=== PATIENT | male | born 1975 | race Caucasian/White ===

== ENCOUNTER 2018-05-06 13:27 | Emergency (ER) | payer OTHER, SELFPAY ==
[2018-05-06 13:40] VITALS: BP 147/98; PULSE 67; RESP 11; TEMP 37.2; O2SAT 95
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
[2018-05-06] MEDS: Lidocaine 5% Patch 2 PATCH TP (15:17)
[2018-05-06 15:25] VITALS: BP 124/83; PULSE 70; RESP 16; TEMP 37; O2SAT 95
== END 2018-05-06 15:25 | disposition home or self-care (01) ==
PROVIDERS: Emergency Provider Physician Assistant; PCP Specialist/Technologist Athletic Trainer
DX: R07.81 Pleurodynia (principal); M25.511 Pain in right shoulder; V59.40XA Driver of pick-up truck or van injured in collision with unspecified motor vehicles in traffic accident, initial encounter; Y99.0 Civilian activity done for income or pay
CPT/HCPCS: 93005; 99284; 71046; 71100; 73030; 93010

== ENCOUNTER 2019-01-07 01:32 | Outpatient (CLI) | payer MEDICAID, SELFPAY ==
--- NOTE | 2019-01-07 09:54 | DI.US_ITS ---
SYMPTOM/DIAGNOSIS: ABD PAIN, R10.9 ABDOMEN ULTRASOUND: Hepatic parenchyma is echogenic and there is decrease through transmission. Findings are consistent with hepatic steatosis. Significant portions of the liver are not visualized due to patient's size and decrease through transmission. There is cholelithiasis with multiple gallstones. No gallbladder wall thickening or pericholecystic fluid collection is seen. Negative sonographic Red's sign. No common duct dilatation. Pancreas appears intact as visualized. Spleen is unremarkable in appearance as are the kidneys. Note is made of a ventral hernia in the supraumbilical region measuring about 5- 6 cm. in diameter. This appears to contain bowel. CONCLUSION: 1. Cholelithiasis. 2. Hepatic steatosis and mild hepatomegaly. 3. Probable ventral hernia containing bowel, correlation with CT is recommended.
== END 2019-01-07 01:52 ==
PROVIDERS: PCP Nurse Practitioner Family; Visit Provider Nurse Practitioner Family
DX: R10.9 Unspecified abdominal pain (principal); K80.20 Calculus of gallbladder without cholecystitis without obstruction; K76.0 Fatty (change of) liver, not elsewhere classified; R16.0 Hepatomegaly, not elsewhere classified; K43.9 Ventral hernia without obstruction or gangrene
CPT/HCPCS: 76700

== ENCOUNTER 2019-03-02 03:21 | Emergency (ER) | payer MEDICAID, SELFPAY ==
[2019-03-02 03:27] VITALS: BP 125/114; PULSE 72; RESP 22; TEMP 36.1; O2SAT 100
--- NOTE | 2019-03-02 03:38 | W.ED.GENAD ---
Discharge Plan Disposition Patient Disposition: HOME Condition: Stable Discharge Details Chief Complaint: Abd Prob Clinical Impression: Abdominal pain Primary Care Provider: Nasrin Royal ED Provider: Triston Sanders Home Meds and New Rx's Prescriptions: No Action multivitamin [Daily Multiple] 1 EACH tablet 1 ea PO DAILY RF: 0 omeprazole 40 mg PO DAILY RF: 0 ibuprofen 600 MG tablet 600 mg PO Q6H PRN (Reason: Pain) Qty: 20 RF: 0 Discharge Instructions Instructions: Abdominal Pain (ED) Additional Instructions: follow up with your surgeon in [place] in 1-2 weeks if possible if you have severe worsening of pain, persistent vomit or feel more ill return to the emergency department for reevaluation Medical Decision Making 43 yo male who has a hx of gerd, gallstones dx'd on u/s in January of this year who comes in with severe abdominal pain that started around 3 horus or so ago. HE states he has been having intermittent abdominal pain for over a month but acutely worsened tonight. Denies chest pain, sob, fevers, vomit but has had nausea. He is tender throughout the upper abdomen on exam and is in severe pain. Will tx his pain and obtain lab work and ct imaging to eval for entities such as pneumoperitoneum, cholecystitis, sbo. pt's labs show no acute findings, lipase still pending due to machine malfunction. Pt feeling significantly better now and much more comfortable, mild upper abdominal pain. awaiting ct and lipase ct shows nonspecific attenuation in gallbladder stones and/or sludge otherwise normal gallbladder, and umbilical hernia contains fat and small fluid/inflammation. He has absolutely no tendneress at this time on exam anywhere, no field's sign so doubt incarcerated hernia or cholecystitis. Given his pain is gone do not feel further imaging indicated. He is f/u with surgery in [place], return precautions given Differential Diagnosis cholecystitis, pneumoperitoneum, kidney stone Imaging Data Radiologic Study: Attestation: I personally reviewed and interpreted this imaging study as follows: Imaging: CT Scan Radiologist's impression: IMPRESSION: 1. Heterogeneous increased attenuation in the gallbladder in the region of the neck may reflect stones and/or sludge. Gallbladder is normally distended and not obviously thick walled. Sonography however recommended if right upper quadrant symptoms are present. 2. Umbilical region hernia contains fat and small fluid/inflammation. Clinical correlation recommended to assess for incarceration of the herniated fat. Lab Data Lab results reviewed: Yes I reviewed the patient's lab results. HPI General Mode of arrival: ambulatory. Date/Time Provider Initiated Documentation: 03/02/19 03:23. Limitations to Documentation: no limitations. Information obtained by: patient. History of Present Illness 43 year old M presents to the emergency department with the chief complaint of upper abdominal pain, described as severe, Quality is described as sharp, and is localized to the abdomen. Patient reports no radiation. Patient started experiencing this hour(s) (3) and it has been constant. No relieving factors improve symptom(s), No exacerbating factors reported . Patient notes other (nausea). Patient did receive the following treatments prior to arrival, none Related Data Home Medications Medication Instructions Recorded Confirmed Omeprazole 40 mg PO DAILY 07/10/16 03/02/19 multivitamin [Daily Multiple] 1 ea PO DAILY 07/10/16 03/02/19 ibuprofen 600 mg PO Q6H PRN #20 tablet 05/06/18 03/02/19 Previous Rx's Medication Instructions Recorded ibuprofen 600 mg PO Q6H PRN #20 tablet 05/06/18 Allergies Allergy/AdvReac Type Severity Reaction Status Date / Time No Known Allergies Allergy Unverified 03/02/19 03:31 General Stated Complaint: Abd Prob RIKA: 3 Review of Systems Review of Systems All systems reviewed & are unremarkable except as noted in HPI and below Constitutional Denies chills, Denies fever(s) and Denies weakness Cardiovascular Denies chest pain and Denies dyspnea Respiratory Denies cough and Denies dyspnea Gastrointestinal Denies nausea and Denies vomiting Neurologic Denies weakness PFSH Surgical History EGD - MAC (08/15/16) Social History Smoking/Tobacco Use Status: Former Tobacco Use Drug use: Never Substance use type: does not use Do you feel safe in your relationship?: Yes Exam Const General: other (in pain) Orientation: alert HENMT Head: normal to inspection Ears: external ears normal General nose exam: external nose normal Mouth: moist mucous membranes Eyes General: appearance normal, both eyes and all related structures Neck Neck: normal visual inspection Resp Effort & Inspection: normal respiratory effort and able to speak in complete sentences Cardio Rate: regular rate GI Palpation: tender Skin General skin exam: no rashes or lesions noted Neuro General: alert and oriented x3 Extrem General: normal to inspection Psych Mental Status: mental status grossly normal Course Vital Signs Temperature 36.1 C L 03/02/19 03:27 Pulse 72 03/02/19 03:27 Respiratory Rate 22 03/02/19 03:27 Blood Pressure 125/114 H 03/02/19 03:27 Pulse Oximetry 100 03/02/19 03:27 Temperature 36.1 C L 03/02/19 03:27 Temperature Source Skin 03/02/19 03:27 Pulse 72 03/02/19 03:27 Respiratory Rate 22 03/02/19 03:27 Respiratory Effort 03/02/19 03:31 Blood Pressure 125/114 H 03/02/19 03:27 Blood Pressure Position Sitting 03/02/19 03:27 Pulse Oximetry 100 03/02/19 03:27 Oxygen Delivery Method Room Air 03/02/19 03:27 Oxygen Flow Rate 0 03/02/19 03:27 Pain Level 8 03/02/19 03:27
--- NOTE | 2019-03-02 03:42 | ED.GENADUL_ITS ---
Discharge Plan Disposition Patient Disposition: HOME Condition: Stable Discharge Details Chief Complaint: Abd Prob Clinical Impression: Abdominal pain Primary Care Provider: Nasrin Royal ED Provider: Triston Sanders Home Meds and New Rx's Prescriptions: No Action multivitamin [Daily Multiple] 1 EACH tablet 1 ea PO DAILY RF: 0 omeprazole 40 mg PO DAILY RF: 0 ibuprofen 600 MG tablet 600 mg PO Q6H PRN (Reason: Pain) Qty: 20 RF: 0 Discharge Instructions Instructions: Abdominal Pain (ED) Additional Instructions: follow up with your surgeon in [place] in 1-2 weeks if possible if you have severe worsening of pain, persistent vomit or feel more ill return to the emergency department for reevaluation Medical Decision Making 43 yo male who has a hx of gerd, gallstones dx'd on u/s in January of this year who comes in with severe abdominal pain that started around 3 horus or so ago. HE states he has been having intermittent abdominal pain for over a month but acutely worsened tonight. Denies chest pain, sob, fevers, vomit but has had nausea. He is tender throughout the upper abdomen on exam and is in severe pain. Will tx his pain and obtain lab work and ct imaging to eval for entities such as pneumoperitoneum, cholecystitis, sbo. pt's labs show no acute findings, lipase still pending due to machine malfunction. Pt feeling significantly better now and much more comfortable, mild upper abdominal pain. awaiting ct and lipase ct shows nonspecific attenuation in gallbladder stones and/or sludge otherwise normal gallbladder, and umbilical hernia contains fat and small fluid/inflammation. He has absolutely no tendneress at this time on exam anywhere, no field's sign so doubt incarcerated hernia or cholecystitis. Given his pain is gone do not feel further imaging indicated. He is f/u with surgery in [place], return precautions given Differential Diagnosis cholecystitis, pneumoperitoneum, kidney stone Imaging Data Radiologic Study: Attestation: I personally reviewed and interpreted this imaging study as follows: Imaging: CT Scan Radiologist's impression: IMPRESSION: 1. Heterogeneous increased attenuation in the gallbladder in the region of the neck may reflect stones and/or sludge. Gallbladder is normally distended and not obviously thick walled. Sonography however recommended if right upper quadrant symptoms are present. 2. Umbilical region hernia contains fat and small fluid/inflammation. Clinical correlation recommended to assess for incarceration of the herniated fat. Lab Data Lab results reviewed: Yes I reviewed the patient's lab results. HPI General Mode of arrival: ambulatory . Date/Time Provider Initiated Documentation: 03/02/19 03:23 . Limitations to Documentation: no limitations . Information obtained by: patient . History of Present Illness 43 year old M presents to the emergency department with the chief complaint of upper abdominal pain, described as severe, Quality is described as sharp, and is localized to the abdomen. Patient reports no radiation. Patient started experiencing this hour(s) (3) and it has been constant. No relieving factors improve symptom(s), No exacerbating factors reported . Patient notes other (nausea). Patient did receive the following treatments prior to arrival, none Related Data Home Medications Medication Instructions Recorded Confirmed Omeprazole 40 mg PO DAILY 07/10/16 03/02/19 multivitamin [Daily Multiple] 1 ea PO DAILY 07/10/16 03/02/19 ibuprofen 600 mg PO Q6H PRN #20 tablet 05/06/18 03/02/19 Previous Rx's Medication Instructions Recorded ibuprofen 600 mg PO Q6H PRN #20 tablet 05/06/18 Allergies Allergy/AdvReac Type Severity Reaction Status Date / Time No Known Allergies Allergy Unverified 03/02/19 03:31 General Stated Complaint: Abd Prob RIKA: 3 Review of Systems Review of Systems All systems reviewed & are unremarkable except as noted in HPI and below Constitutional Denies chills, Denies fever(s) and Denies weakness Cardiovascular Denies chest pain and Denies dyspnea Respiratory Denies cough and Denies dyspnea Gastrointestinal Denies nausea and Denies vomiting Neurologic Denies weakness PFSH Surgical History EGD - MAC (08/15/16) Social History Smoking/Tobacco Use Status: Former Tobacco Use Drug use: Never Substance use type: does not use Do you feel safe in your relationship?: Yes Exam Const General: other (in pain) Orientation: alert HENMT Head: normal to inspection Ears: external ears normal General nose exam: external nose normal Mouth: moist mucous membranes Eyes General: appearance normal, both eyes and all related structures Neck Neck: normal visual inspection Resp Effort & Inspection: normal respiratory effort and able to speak in complete sentences Cardio Rate: regular rate GI Palpation: tender Skin General skin exam: no rashes or lesions noted Neuro General: alert and oriented x3 Extrem General: normal to inspection Psych Mental Status: mental status grossly normal Course Vital Signs Temperature 36.1 C L 03/02/19 03:27 Pulse 72 03/02/19 03:27 Respiratory Rate 22 03/02/19 03:27 Blood Pressure 125/114 H 03/02/19 03:27 Pulse Oximetry 100 03/02/19 03:27 Temperature 36.1 C L 03/02/19 03:27 Temperature Source Skin 03/02/19 03:27 Pulse 72 03/02/19 03:27 Respiratory Rate 22 03/02/19 03:27 Respiratory Effort 03/02/19 03:31 Blood Pressure 125/114 H 03/02/19 03:27 Blood Pressure Position Sitting 03/02/19 03:27 Pulse Oximetry 100 03/02/19 03:27 Oxygen Delivery Method Room Air 03/02/19 03:27 Oxygen Flow Rate 0 03/02/19 03:27 Pain Level 8 03/02/19 03:27
[2019-03-02] MEDS: Ondansetron 4 MG/2 ML VIAL IVP (03:48)
[2019-03-02] MEDS: HYDROmorphone 2 MG/ML VIAL 1 MG IVP (03:49)
[2019-03-02] MEDS: Normal Saline 1,000 ML 1000 ML IV (03:49)
[2019-03-02 03:55] LABS: Abs Immature Grans 0.01 k/cumm (0.0-0.09); Absolute Basophil Count 0.02 k/cumm (0.0-0.2); Absolute Eosinophil Count 0.09 k/cumm (0.0-0.7); Absolute Monocyte Count 0.68 k/cumm (0.11-0.7); Absolute Neutrophil Count 7.06 k/cumm (1.2-6.7); Basophils % 0.2; HCT 44.5 % (40.0-50.0); Immature Grans % 0.1; Lymphocytes % 15.1; Mean Corp. HGB Concentration 33.7 g/dL (32.0-36.0); Mean Corpuscular Hemoglobin 30.4 pg (27.0-33.0); Mean Corpuscular Volume 90.1 fL (80-95); Mean Platelet Volume 9.8 fL (8.0-11.0); Monocytes % 7.3; Neutrophils % 76.3; Platelet Count 289 x1000/uL (130-400); RBC 4.94 m/cumm (4.50-6.00); RBC Distribution Width 13.3 % (11.8-14.1); White Blood Cell Count 9.26 k/cumm (4.4-10.8)
[2019-03-02 04:07] LABS: ALT 42 U/L (12-78); AST 25 U/L (15-37); Albumin 3.7 g/dL (3.4-5.0); Alkaline Phosphatase 145 U/L (46-116); Anion Gap 9.1 mmol/L (3-11); BUN 24 mg/dL (7-18); Bilirubin, Total 0.4 mg/dL (0.2-1.0); CO2 27.9 mmol/L (21.0-32.0); CREATININE 1.17 mg/dL (0.70-1.30); Calcium 9.3 mg/dL (8.5-10.1); Chloride 104 mmol/L (98-107); Glucose 127 mg/dL (70-100); Sodium 141 mmol/L (136-145); Total Protein 8.4 g/dL (6.4-8.2)
[2019-03-02 04:13] LABS: PTT Activated 23.3 sec (21.0-31.4); Prothrombin Time 9.9 sec (9.3-11.0)
[2019-03-02] MEDS: Omnipaque 350 MG/ML 100 ML BTL IJ (04:16)
[2019-03-02] MEDS: Omnipaque 350 MG/ML 50 ML BTL IJ (04:17)
[2019-03-02] MEDS: Normal Saline Flush 10 ML SYR IVP (04:17)
--- NOTE | 2019-03-02 04:20 | DI.CT_ITS ---
SYMPTOM/DIAGNOSIS: UPPER ABD PAIN, KNOWN HERNIA ABDOMEN AND PELVIC CT: CT examination of the abdomen and pelvis was performed with a bolus infusion of 125 cc's of Omnipaque 350. Images obtained through the lung bases are unremarkable. There appears to be mild hepatic steatosis. There is a question of increased attenuation in gallbladder neck raising the possibility of sludge or gallstones, recent ultrasound of 01/07/19 did show cholelithiasis. No pericholecystic fluid collection or biliary dilatation is seen. Pancreas is unremarkable. Abdominal aorta is of normal diameter and no major vascular abnormality is seen. No abdominal or pelvic adenopathy. Adrenals and kidneys appear normal. No urinary tract calcification or obstruction. Appendix is normal. No evidence of diverticulitis or bowel obstruction. There is a ventral hernia which is fat containing, the orifice measures about 55 mm. on transaxial imaging and the hernia sac measures up to about 8-9 cm. There is mild fat edema associated with this finding, both in and adjacent to the hernia sac, the possibility of incarceration of herniated fat, please correlate clinically. Small amount of fluid may be present in the hernia sac as well. CONCLUSION: Question incarcerated fat containing ventral hernia as described above, please correlate clinically regarding the possibility of inflammation at this site. Hepatic steatosis noted. Cholelithiasis noted as seen on recent ultrasound examination.
[2019-03-02 05:02] VITALS: BP 110/74; PULSE 58; RESP 18; TEMP 36.3; O2SAT 97
--- NOTE | 2019-03-02 05:28 | DI.VRAD_ITS ---
EXAM: CT Abdomen and Pelvis With Contrast EXAM DATE/TIME: 03/02/2019 4:18 AM CLINICAL HISTORY: 43 years old, male; Localized; Patient HX: Upper abdominal pain. ; Additional info: Known hernia TECHNIQUE: Imaging protocol: Axial computed tomography images of the abdomen and pelvis with intravenous contrast. Coronal and sagittal reformatted images were created and reviewed. Radiation optimization: All CT scans at this facility use at least one of these dose optimization techniques: automated exposure control; mA and/or kV adjustment per patient size (includes targeted exams where dose is matched to clinical indication); or iterative reconstruction. Contrast material: OMNIPAQUE 350; Contrast volume: 125 ml; Contrast route: IV; COMPARISON: US ABDOMEN 01/07/2019 4:09 PM FINDINGS: Liver: Hepatic steatosis is present. Gallbladder and bile ducts: Heterogeneous increased attenuation in the gallbladder in the region of the neck may reflect stones and/or sludge. Gallbladder is normally distended and not obviously thick walled. Sonography however recommended if right upper quadrant symptoms are present. Pancreas: Normal. No ductal dilation. Spleen: Normal. No splenomegaly. Adrenals: Normal. No mass. Kidneys and ureters: Normal. No hydronephrosis. Stomach and bowel: Normal. No obstruction. No mucosal thickening. Appendix: No evidence of appendicitis. Intraperitoneal space: See Gallbladder And Bile Ducts Finding. Vasculature: Normal. No abdominal aortic aneurysm. Lymph nodes: Normal. No enlarged lymph nodes. Bladder: Unremarkable as visualized. Reproductive: Unremarkable as visualized. Bones/joints: No acute fracture. No dislocation. Soft tissues: Umbilical region hernia contains fat and small fluid/inflammation. Clinical correlation recommended to assess for incarceration of the herniated fat. IMPRESSION: 1. Heterogeneous increased attenuation in the gallbladder in the region of the neck may reflect stones and/or sludge. Gallbladder is normally distended and not obviously thick walled. Sonography however recommended if right upper quadrant symptoms are present. 2. Umbilical region hernia contains fat and small fluid/inflammation. Clinical correlation recommended to assess for incarceration of the herniated fat. Dictated and Authenticated by: Mason Block MD. Ordering:ALEKSANDRA Goldstein MD
[2019-03-02 07:56] LABS: Lipase 203 U/L (73-393)
== END 2019-03-02 05:48 | disposition home or self-care (01) ==
PROVIDERS: Emergency Provider Emergency Medicine; PCP Nurse Practitioner Family
DX: R10.9 Unspecified abdominal pain (principal); K42.9 Umbilical hernia without obstruction or gangrene
CPT/HCPCS: 36415; 80053; 83690; 96361; 96374; 96375; 99285; 74177; 85025; 85610; 85730; 99284; J2405; J3490; Q9967

== ENCOUNTER 2020-05-21 04:27 | Emergency (ER) | payer MEDICAID, SELFPAY ==
--- NOTE | 2020-05-21 04:30 | RT.EKG_ITS ---
APPROVED REPORT Exam: Resting ECG Patient Location: E HR:61 bpm ECG Measurements Heart Rate 61 AXIS VA 179 P 3 QRSd 106 QRS -13 QT 406 T 34 QTc 408 Conclusion Sinus rhythm...normal P axis, V-rate 60- 99 ST elev, probable normal early repol pattern...ST elevation, age<55
[2020-05-21 04:31] VITALS: BP 115/90; PULSE 84; RESP 22; TEMP 36.6; O2SAT 97
--- NOTE | 2020-05-21 04:39 | ED.GENADUL_ITS ---
Discharge Plan Disposition Patient Disposition: HOME Condition: Stable Discharge Details Clinical Impression: Chest pain, Abdominal pain, Biliary colic Primary Care Provider: Nasrin Royal ED Provider: Triston Sanders Home Meds and New Rx's Prescriptions: Continued multivitamin [Daily Multiple] 1 EACH tablet 1 ea PO DAILY RF: 0 omeprazole 40 mg PO DAILY RF: 0 ibuprofen 600 MG tablet 600 mg PO Q6H PRN (Reason: Pain) Qty: 20 RF: 0 ranitidine HCl 150 mg Tablet 150 mg PO PRN PRN (Reason: Acid Reflux) RF: 0 Discharge Instructions Instructions: Biliary Colic (ED) Additional Instructions: you should be contacted with an appointment for general surgery to discuss having your gallbladder removed if you have severe worsening pain or feel more ill return to the emergency department Medical Decision Making 44 yo male with prior hx of gerd and had a cholecystectomy a few months ago for gallstones per pt, comes in with acute onset epigastric/lower chest pain radiating to the back and lower abdomen starting about 3-4 hours ago per patient. Denies vomit, fevers chills, dyspnea. Arrives HD stable speaking in full sentences. He states the pain makes it so he can't get comfortable so he came here. HE has no murmurs, no jvd, no calf swelling or tenderness, clear lungs, has tenderness with palpation to the luq and epigastric no guarding or rebound. I suspect esophageal spasm but given the chest pain radiating to the back and abdomen feel dissection should be evaluated for with CT. Will also evaluate for pancreatitis. His heart score is 2, will send troponin. WElls low and perc negative so doubt PE imaging negative other than air filled gallstones and pt now states he never had his gallbladder out but that they discussed it in the past. no longer has any pain on abdominal exam, suspect biliary colic. Given pain started over 3 hours prior to arrival do not feel deltra troponin ould add additional value. Will refer to general surgery to discuss cholecystectomy. Return precautions given Differential Diagnosis Differential Diagnosis: dissection, nstemi, esophageal spasm, sbo Medical Records Medical records reviewed: Yes I reviewed the patient's medical records. Imaging Data Radiologic Study: Attestation: I personally reviewed and interpreted this imaging study as follows: Imaging: CT Scan Radiologist's impression: IMPRESSION: Unremarkable CTA. Mild gallbladder distension and air containing gallstones. Consider right upper quadrant ultrasound Question mild thickening of the stomach versus underdistention and question mild jejunal thickening. Correlate for enteritis Fatty infiltration of the liver and hepatomegaly Lab Data Lab results reviewed: Yes I reviewed the patient's lab results. ECG Data Attestation: I personally reviewed and interpreted this ECG (s) as follows: Prior ECG tracings: not available for review Interpretation: sinus rhythm, rate of 60, pr 179, qtc 406 HPI General Mode of arrival: ambulatory . Date/Time Provider Initiated Documentation: 05/21/20 04:35 . Limitations to Documentation: no limitations . Information obtained by: patient . History of Present Illness 44 year old M presents to the emergency department with the chief complaint of chest pain, described as moderate, Patient reports radiation to back and abdomen. Patient started experiencing this hour(s) (4) No relieving factors improve symptom(s), No exacerbating factors reported . Patient notes no other symptoms.. Patient did receive the following treatments prior to arrival, none Related Data Home Medications Medication Instructions Recorded Confirmed Omeprazole 40 mg PO DAILY 07/10/16 05/21/20 multivitamin [Daily Multiple] 1 ea PO DAILY 07/10/16 05/21/20 ibuprofen 600 mg PO Q6H PRN #20 tablet 05/06/18 05/21/20 ranitidine HCl 150 mg PO PRN PRN 05/21/20 05/21/20 Previous Rx's Medication Instructions Recorded ibuprofen 600 mg PO Q6H PRN #20 tablet 05/06/18 Allergies Allergy/AdvReac Type Severity Reaction Status Date / Time No Known Allergies Allergy Unverified 05/21/20 04:35 General Stated Complaint: Chest Pain RIKA: 2 Review of Systems All systems reviewed & are unremarkable except as noted in HPI and below Constitutional Constitutional: Denies chills and Denies fever(s) Cardiovascular Cardiovascular: Denies dyspnea Respiratory Respiratory: Denies cough and Denies dyspnea Gastrointestinal Gastrointestinal: Denies nausea and Denies vomiting Genitourinary Genitourinary: Denies dysuria Musculoskeletal Musculoskeletal: Denies joint swelling Integumentary/Breasts Skin/Breast: Denies rash Psychiatric Psychiatric: Denies depression [facility] Surgical History (Updated 08/28/16 @ 12:49 by Halina Zaragoza) EGD - MAC (08/15/16) Social History Smoking/Tobacco Use Status: Former Tobacco Use Alcohol Intake: never Drug use: Never Substance use type: does not use Do you feel safe at home: Yes Do you feel safe in your relationship?: Yes Exam Const General: no acute distress Orientation: alert HENMT Head: normal to inspection Ears: external ears normal General nose exam: external nose normal Mouth: moist mucous membranes Eyes General: appearance normal, both eyes and all related structures Neck Neck: normal visual inspection Resp Effort & Inspection: normal respiratory effort and able to speak in complete sentences Cardio Rate: regular rate GI Palpation: soft Skin General skin exam: no rashes or lesions noted Neuro General: patient alert and patient oriented x3 Extrem General: normal to inspection Psych Mental Status: mental status grossly normal Course Vital Signs Vital signs: Vital Signs Temperature 36.6 C 05/21/20 04:31 Pulse 84 05/21/20 04:31 Respiratory Rate 22 05/21/20 04:31 Blood Pressure 115/90 05/21/20 04:31 Pulse Oximetry 97 05/21/20 04:31 Temperature 36.6 C 05/21/20 04:31 Temperature Source Temporal Artery Scan 05/21/20 04:31 Pulse 84 05/21/20 04:31 Respiratory Rate 22 05/21/20 04:31 Respiratory Effort Non-Labored 05/21/20 04:36 Blood Pressure 115/90 05/21/20 04:31 Blood Pressure Position Sitting 05/21/20 04:31 Pulse Oximetry 97 05/21/20 04:31 Oxygen Delivery Method Room Air 05/21/20 04:31 Oxygen Flow Rate 0 05/21/20 04:31 Pain Level 7 05/21/20 04:31
--- NOTE | 2020-05-21 04:45 | DI.CT_ITS ---
EXAM: CT THORAX ABD/PEL CTA TECHNIQUE: CT angiography of the chest, abdomen and pelvis was performed with bolus infusion of 100 cc of Omnipaque 350. Axial CT angiography was performed with multi-slice acquisition and multi-planar and/or 3D reconstruc tions. COMPARISON: CR RIGHT RIBS TO INCLUDE CXR from 05/06/[address] ABDOMEN PELVIS W from 03/02/[address] ABDOMEN PELVIS W from 03/02/2019 FINDINGS: The lungs are clear. No pleural effusion. No evidence of pulmonary embolic disease. No thoracic aort ic dissection or aneurysm. Major branches of the thoracic aorta appear normal. No pleural effusion. No mediastinal or hilar adenopathy. Tracheobronchial tree appears intact. Incidental note is made of sclerotic lesion of the posterior spinous process of what appears to be T5 , this measures about 13 millimeters in greatest diameter and averages about 942 Hounsfield units att enuation, consistent with bone island. No focal or renal abnormality seen. Bile ducts are CT normal. Pancreas is unremarkable. Spleen shows unremarkable early arterial phase pattern of enhancement. The liver is of low attenuation consisten t with hepatic steatosis. Note is made of cholelithiasis. No abdominal aortic aneurysm or dissection. Major branches of the abdominal aorta appear normal. No a bdominal or pelvic adenopathy. Normal appendix. No significant abdominal wall hernia. No focal bowel pathology. IMPRESSION: No evidence of acute vascular abnormality of the chest, abdomen or pelvis. Hepatic steatosis and cho lelithiasis noted. RADIATION DOSE DELIVERED: Total DLP Total DLP DATA REPOSITORY: All CT scans at this facility are submitted to the National Radiology Data Registry (NRDR) Dose Index Registry (DIR) with the [employer] (ACR). RADIATION OPTIMIZATION: All CT scans at this facility use at least one of these dose optimization te chniques: automated exposure control; mA and/or kV adjustment per patient size (includes targeted exa ms where dose is matched to clinical indication); or iterative reconstruction.
[2020-05-21 04:51] LABS: Abs Immature Grans 0.01 10^3/uL (0.0-0.06); Absolute Basophil Count 0.03 10^3/uL (0.0-0.2); Absolute Eosinophil Count 0.13 10^3/uL (0.0-0.7); Absolute Lymphocyte Count 1.45 10^3/uL (1.2-3.4); Absolute Monocyte Count 0.64 10^3/uL (0.1-0.8); Absolute Neutrophil Count 5.08 10^3/uL (1.2-6.7); Basophils % 0.4; Eosinophils % 1.8; HCT 43.3 % (40.0-50.0); HGB 14.1 g/dL (13.5-17.5); Immature Grans % 0.1; Lymphocytes % 19.8; MCH 30.5 pg (27.0-33.0); MCHC 32.6 % (32.0-36.0); MCV 93.5 fL (80-95); MPV 9.8 fL (8.0-11.0); Monocytes % 8.7; Neutrophils % 69.2; Nucleated RBC 0 %; Platelet Count 237 10^3/uL (130-400); RBC 4.63 10^6/uL (4.36-5.78); RDW 12.5 % (11.8-14.1); RDW-SD 42.5 fL; WBC 7.34 10^3/uL (4.4-10.8)
[2020-05-21] MEDS: fentaNYL 100 MCG/2 ML VIAL IVP (04:58)
[2020-05-21 05:00] VITALS: BP 146/100; PULSE 61; RESP 16; O2SAT 97
[2020-05-21 05:00] LABS: Lipase 172 U/L (73-393)
[2020-05-21 05:07] LABS: ALT 40 U/L (16-63); AST 23 U/L (15-37); Albumin 3.5 g/dL (3.4-5.0); Alkaline Phosphatase 137 U/L (46-116); Anion Gap 6.8 mmol/L (3-11); BUN 22 mg/dL (7-18); Bilirubin, Direct 0.06 mg/dL (0.00-0.20); Bilirubin, Total 0.2 mg/dL (0.2-1.0); CO2 28.2 mmol/L (21.0-32.0); CREATININE 1.26 mg/dL (0.70-1.30); Calcium 8.9 mg/dL (8.5-10.1); Chloride 104 mmol/L (98-107); Glucose 126 mg/dL (74-106); Magnesium 1.9 mg/dL (1.8-2.4); Potassium 3.8 mmol/L (3.5-5.1); Sodium 139 mmol/L (136-145); Total Protein 7.6 g/dL (6.4-8.2)
[2020-05-21 05:18] LABS: Troponin I < 0.05 ng/mL (<0.06)
[2020-05-21 05:25] VITALS: BP 142/81; PULSE 56; RESP 16; O2SAT 94
[2020-05-21 05:27] LABS: INR 0.9 (0.9-1.1); PTT Activated 24.8 sec (21.0-31.4); Prothrombin Time 9.5 sec (9.3-11.0)
--- NOTE | 2020-05-21 05:41 | DI.VRAD_ITS ---
PROCEDURE INFORMATION: Exam: CT Angiography Chest With Contrast Exam date and time: 05/21/2020 4:51 AM Age: 44 years old Clinical indication: Type not specified; Abdominal pain; Prior surgery; Surgery date: 6+ months; Surgery type: Hernia repair; Patient HX: Epigastric pain, chest pain TECHNIQUE: Imaging protocol: Computed tomographic angiography of the chest with intravenous contrast. 3D rendering (Not supervised by radiologist): MIP and/or 3D reconstructed images were created by the technologist. Radiation optimization: All CT scans at this facility use at least one of these dose optimization techniques: automated exposure control; mA and/or kV adjustment per patient size (includes targeted exams where dose is matched to clinical indication); or iterative reconstruction. Contrast material: OMNIPAQUE 350; Contrast volume: 100 ml; Contrast route: INTRAVENOUS (IV); COMPARISON: CR RIGHT RIBS TO INCLUDE CXR 05/06/2018 2:00 PM FINDINGS: Pulmonary arteries: Normal. No pulmonary emboli. Aorta: Unremarkable. No aortic aneurysm. No aortic dissection. Lungs: Unremarkable. No consolidation. No masses. Pleural space: Unremarkable. No pneumothorax. No pleural effusion. Heart: Unremarkable. No cardiomegaly. No pericardial effusion. Lymph nodes: Unremarkable. No enlarged lymph nodes. Bones/joints: Unremarkable. No acute fracture. Soft tissues: Unremarkable. IMPRESSION: No acute findings. PROCEDURE INFORMATION: Exam: CT Angiography Abdomen and Pelvis With Contrast Exam date and time: 05/21/2020 4:51 AM Age: 44 years old Clinical indication: Type not specified; Abdominal pain; Prior surgery; Surgery date: 6+ months; Surgery type: Hernia repair; Patient HX: Epigastric pain, chest pain TECHNIQUE: Imaging protocol: Computed tomographic angiography of the abdomen and pelvis with intravenous contrast material. 3D rendering (Not supervised by radiologist): MIP and/or 3D reconstructed images were created by the technologist. Radiation optimization: All CT scans at this facility use at least one of these dose optimization techniques: automated exposure control; mA and/or kV adjustment per patient size (includes targeted exams where dose is matched to clinical indication); or iterative reconstruction. Contrast material: OMNIPAQUE 350; Contrast volume: 100 ml; Contrast route: INTRAVENOUS (IV); COMPARISON: CR RIGHT RIBS TO INCLUDE CXR 05/06/2018 2:00 PM FINDINGS: Aorta: No aortic aneurysm. No aortic dissection. Celiac trunk and mesenteric arteries: No occlusion or significant stenosis. Renal arteries: No occlusion or significant stenosis. Right iliac arteries: No occlusion or significant stenosis. Left iliac arteries: No occlusion or significant stenosis. Liver: No mass. Hepatomegaly and diffuse fatty infiltration Gallbladder and bile ducts: Air containing gallstones. The gallbladder is distended No ductal dilation. Pancreas: Unremarkable. No mass. No ductal dilation. Spleen: Unremarkable. No splenomegaly. Adrenals: Unremarkable. No mass. Kidneys and ureters: No solid mass. No hydronephrosis. Stomach and bowel: No obstruction. Mild gastric wall thickening versus under distention. Question mild jejunal thickening Appendix: No evidence of appendicitis. Intraperitoneal space: Unremarkable. No free air. No significant fluid collection. Lymph nodes: Unremarkable. No enlarged lymph nodes. Bladder: Unremarkable. No mass. Reproductive: Unremarkable as visualized. Bones/joints: No acute fracture. No dislocation. Soft tissues: Unremarkable. IMPRESSION: Unremarkable CTA. Mild gallbladder distension and air containing gallstones. Consider right upper quadrant ultrasound Question mild thickening of the stomach versus underdistention and question mild jejunal thickening. Correlate for enteritis Fatty infiltration of the liver and hepatomegaly Dictated and Authenticated by: Aquiles Toth MD. Ordering:ALEKSANDRA Goldstein MD
[2020-05-21] MEDS: Omnipaque 350 MG/ML 100 ML BTL IJ (05:48)
[2020-05-21] MEDS: Normal Saline - Diluent 50 ML VIAL IV (05:49)
[2020-05-21] MEDS: Normal Saline Flush 10 ML SYR IVP (05:49)
[2020-05-21 06:01] VITALS: BP 126/79; PULSE 65; O2SAT 96
== END 2020-05-21 06:05 | disposition home or self-care (01) ==
PROVIDERS: Emergency Provider Emergency Medicine; PCP Nurse Practitioner Family
DX: K80.70 Calculus of gallbladder and bile duct without cholecystitis without obstruction (principal); R10.13 Epigastric pain; R07.89 Other chest pain
CPT/HCPCS: 36415; 71275; 74177; 80053; 83690; 93005; 96374; 99285; 82248; 83735; 84484; 85025; 85610; 85730; 93010; 99284; J3010; J3490

== ENCOUNTER 2020-07-15 03:44 | Emergency (ER) | payer MEDICAID, SELFPAY ==
--- NOTE | 2020-07-15 03:45 | DI.CT_ITS ---
EXAM: CT ABDOMEN PELVIS W CLINICAL HISTORY: RUQ abdominal pain, known gallstones, eval GB TECHNIQUE: Omnipaque 350-100 cc COMPARISON: CT CT THORAX ABD/PEL CTA from 05/21/2020 FINDINGS: CT examination of the abdomen and pelvis was performed with bolus infusion of 100 cc of Omnipaque 350 . Images obtained through the lung bases are unremarkable. The liver appears uniformly hypodense applying steatosis. There are no discrete focal hepatic lesion s no dilatation of intrahepatic ducts. Gallbladder: Noncalcified gallstones within the gallbladder lumen appeared the gallbladder does not a ppear edema does and there is no pericholecystic fluid. Gallbladder size is mildly distended. CBD diameter is normal There are no pancreatic masses nor dilatation of pancreatic duct. There is no peripancreatic fluid c ollection. Spleen size slightly prominent. No intrasplenic lesions. The splenic and portal veins are patent. Adrenals appear normal bilaterally. Kidneys appear normal with no evidence of renal mass, hydronephro sis, or nephrolithiasis There is no evidence of abdominal or pelvic adenopathy. Abdominal aorta is of normal diameter and no major vascular abnormality is seen. Appendix is normal. No evidence diverticulitis or bowel obstruction. No significant abdominal wall hernia seen. Prostate size is normal. Impression: 1. Cholelithiasis. There are multiple noncalcified gallstones.. Gallbladder size is slightly promin ent but does not appear overtly edematous. Biliary tree is not dilated. 2. Hepatic steatosis. Correlation with appropriate blood work is recommended. 3. No ascites evident. RADIATION DOSE DELIVERED: 1,766.1mGy.cm Total DLP 1,766.1mGy.cm Total DLP DATA REPOSITORY: All CT scans at this facility are submitted to the National Radiology Data Registry (NRDR) Dose Index Registry (DIR) with the [employer] (ACR). RADIATION OPTIMIZATION: All CT scans at this facility use at least one of these dose optimization te chniques: automated exposure control; mA and/or kV adjustment per patient size (includes targeted exa ms where dose is matched to clinical indication); or iterative reconstruction.
--- NOTE | 2020-07-15 03:45 | RT.EKG_ITS ---
APPROVED REPORT Exam: Resting ECG Patient Location: E HR:55 bpm ECG Measurements Heart Rate 55 AXIS ND 207 P 27 QRSd 109 QRS -13 QT 436 T 14 QTc 418 Conclusion Sinus bradycardia...rate< 60 Borderline prolonged ND interval...ND >202, V-rate 50- 90 I have reviewed and interpreted ECG and agree with software generated interpretation.
[2020-07-15 04:04] VITALS: BP 175/100; PULSE 61; RESP 20; TEMP 35.8; O2SAT 98
[2020-07-15] MEDS: Normal Saline 1,000 ML 1000 ML IV (04:10)
[2020-07-15 04:15] LABS: Abs Immature Grans 0.02 10^3/uL (0.0-0.06); Absolute Basophil Count 0.03 10^3/uL (0.0-0.2); Absolute Eosinophil Count 0.11 10^3/uL (0.0-0.7); Absolute Lymphocyte Count 1.46 10^3/uL (1.2-3.4); Absolute Monocyte Count 0.68 10^3/uL (0.1-0.8); Absolute Neutrophil Count 5.72 10^3/uL (1.2-6.7); Basophils % 0.4; Eosinophils % 1.4; HCT 43.9 % (40.0-50.0); HGB 14.3 g/dL (13.5-17.5); Immature Grans % 0.2; Lymphocytes % 18.2; MCH 30.7 pg (27.0-33.0); MCHC 32.6 % (32.0-36.0); MCV 94.2 fL (80-95); MPV 10.1 fL (8.0-11.0); Monocytes % 8.5; Neutrophils % 71.3; Nucleated RBC 0 %; Platelet Count 243 10^3/uL (130-400); RBC 4.66 10^6/uL (4.36-5.78); RDW 12.8 % (11.8-14.1); RDW-SD 43.7 fL; WBC 8.02 10^3/uL (4.4-10.8)
[2020-07-15] MEDS: Ketorolac 30 MG/ML VIAL IVP (04:18)
--- NOTE | 2020-07-15 04:26 | W.ED.GENAD ---
Discharge Plan Disposition Patient Disposition: HOME Condition: Good Discharge Details Clinical Impression: Gallstones without obstruction of gallbladder, Biliary colic Primary Care Provider: Nasrin Royal ED Provider: Chance Kohler Home Meds and New Rx's Prescriptions: Continued sucralfate [Carafate] 1 gram tablet 1 g PO QACHS Qty: 60 RF: 12 multivitamin [Daily Multiple] 1 EACH tablet 1 ea PO DAILY RF: 0 omeprazole 40 mg PO DAILY RF: 0 ibuprofen 600 MG tablet 600 mg PO Q6H PRN (Reason: Pain) Qty: 20 RF: 0 ranitidine HCl 150 mg Tablet 150 mg PO PRN PRN (Reason: Acid Reflux) RF: 0 Hold Instructions: Changed by Provider Discharge Instructions Instructions: Biliary Colic (ED) Additional Instructions: At this time although you do have gallstones there is not an emergent indication with surgery, however after talking with the surgeon he would like to expedite the surgery. To have a nonemergent procedure performed you do need negative Covid testing. We have tested you here and the results should return in the next few days. I note has been copied to Dr. Hawkins as well as Dr. Tamayo the surgeon, and will contact you early this week to set up a surgical time. Please continue to avoid any fatty foods. Take Tylenol and Motrin as needed to help with pain. If you notice any worsening of your symptoms, or any new symptoms such as vomiting, diarrhea, fever, chills, shortness of breath, chest pain, numbness, weakness, or fainting , please return immediately to the emergency department for reevaluation. Please follow up with your primary care provider as soon as possible for reassessment and reevaluation. As always, it was a pleasure participating in your medical care today. Referrals: Nasrin Royal [Primary Care Provider] - Rosario Tamayo MD [ [facility] STAFF PHYSICIAN] - Paula Hawkins DO [OSTEOPATHIC DOCTOR] - Medical Decision Making 44-year-old patient with past medical history of irritable bowel syndrome,, who is following up with Dr. Hawkins on an outpatient basis for discussion of potential cholecystectomy presents today for epigastric upper quadrant abdominal pain. Patient states that last night Please be checked. And warm water, and roughly 102 hours prior to arrival severe cramping and pain epigastric and right upper quadrant pain. Unremitting, radiates to his right back, he denies any tearing or ripping sensation. He denies any chest pain or chest heaviness or chest tightness. He denies a history of cardiac disease. He states that he did take antiacid medication and oral nsaids but this did not improve his symptoms. He states that the pain feels identical to his previous episodes of gallstone problems. He denies any other complaints or modifying factors at this time. Physical exam demonstrates mild to moderate right upper quadrant and epigastric tenderness on palpation, positive Red sign. No flank or CVA tenderness. No pain or McBurney's point. Symptoms are concerning for acute cholecystitis versus notable biliary colic. We will give Toradol and morphine, we will gently rehydrate, get a CT scan, monitor closely and reassess. 6 AM Laboratory work-up is returned, no white count, electrolytes are normal, bilirubin is normal. CT scan per virtual radiology shows mildly distended gallbladder with gallstones, but no overt signs of acute cholecystitis. On reassessment the patient has complete resolution of his pain, repeat abdominal exam shows no abdominal tenderness, negative Red sign. No signs of an acute surgical abdomen or clinical evidence of acute cholecystitis. Especially in conjunction with an absent fever, no white count, left shift or bandemia is signs or symptoms at this timeframe consistent with acute cholecystitis, and rather resolved to biliary colic. I did contact Dr. Tamayo and discussed the patient's case with her. At this time with no emergent indication for cholecystectomy the patient does require coronavirus testing. We will test here, and Dr. Agarwal will follow up on an outpatient basis promptly this week or with Dr. Hawkins. Discussed red flags for which to return, the patient understands. I have extensively reviewed the treatment plan and discharge instructions with the patient. I have addressed all patient concerns at this time. The patient was made aware of what symptoms to monitor for that would warrant a return to the emergency department. Discussed the plan with the patient, they demonstrate verbal understanding and agreement with our assessment and plan at this time. IMPRESSION: Mildly distended gallbladder with vague noncalcified gallstones. Consider right upper quadrant ultrasound for further evaluation Mild fatty infiltration of the liver and hepatomegaly Thank you for allowing us to participate in the care of your patient. Dictated and Authenticated by: Aquiles Toth MD 07/15/2020 4:55 AM Eastern Time ([place] & [place]) HPI General Date/Time Provider Initiated Documentation: 07/15/20 03:45. HPI Narrative: 44-year-old patient with past medical history of irritable bowel syndrome,, who is following up with Dr. Hawkins on an outpatient basis for discussion of potential cholecystectomy presents today for epigastric upper quadrant abdominal pain. Patient states that last night Please be checked. And warm water, and roughly 102 hours prior to arrival severe cramping and pain epigastric and right upper quadrant pain. Unremitting, radiates to his right back, he denies any tearing or ripping sensation. He denies any chest pain or chest heaviness or chest tightness. He denies a history of cardiac disease. He states that he did take antiacid medication and oral nsaids but this did not improve his symptoms. He states that the pain feels identical to his previous episodes of gallstone problems. He denies any other complaints or modifying factors at this time. Related Data Home Medications Medication Instructions Recorded Confirmed Omeprazole 40 mg PO DAILY 07/10/16 07/15/20 multivitamin [Daily Multiple] 1 ea PO DAILY 07/10/16 07/15/20 ibuprofen 600 mg PO Q6H PRN #20 tab 05/06/18 07/15/20 ranitidine HCl 150 mg PO PRN PRN 05/21/20 07/15/20 sucralfate 1 gram tablet 1 g PO QACHS #60 tab 05/30/20 07/15/20 Previous Rx's Medication Instructions Recorded ibuprofen 600 mg PO Q6H PRN #20 tab 05/06/18 sucralfate 1 gram tablet 1 g PO QACHS #60 tab 05/30/20 Allergies Allergy/AdvReac Type Severity Reaction Status Date / Time No Known Allergies Allergy Unverified 07/15/20 04:22 General Stated Complaint: Abd Prob RIKA: 2 Review of Systems All systems reviewed & are unremarkable except as noted in HPI and below PFSH Medical History Chronic GERD Gallstones without obstruction of gallbladder Hiatal hernia with GERD Irritable bowel syndrome with diarrhea Morbidly obese Surgical History EGD - MAC (08/15/16) Social History Smoking/Tobacco Use Status: Former Tobacco Use Smoking risk assessment performed?: Yes Alcohol Intake: never Drug use: Never Substance use type: does not use Current gender identity: male Do you feel safe at home: Yes Do you feel safe in your relationship?: Yes Exam Narrative Exam Narrative: 1.Const: Well-nourished, Well-developed, appearing stated age 2.Eyes: PERRL, no conjunctival injection, and symmetrical lids. 3.ENT: Atraumatic external nose and ears. Moist MM. Neck: Symmetric, trachea midline, No thyromegaly. 4.CVS: +S1/S2, No murmurs or gallops. Peripheral pulses 2+ and equal in all extremities. Brisk capillary refill in all extremities. 5.RESP: Unlabored respiratory effort. Clear to auscultation bilaterally. No wheezes rales or rhonchi 6.GI: Soft, nondistended, mild to moderate right upper quadrant and epigastric tenderness. No pulsatile mass. No pain or McBurney's point, positive Red sign. 7.MSK: Normocephalic/Atraumatic, Extremities w/o deformity or ttp No cyanosis or clubbing, Normal movement of all extremities 8.Skin: Warm, Dry. No rashes or lesions. 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 Sensation grossly intact, no focal neurologic deficits. 10.Psych: (AAO) x3. Appropriate mood and affect Course Vital Signs Vital signs: Vital Signs Temperature 35.8 C L 07/15/20 04:04 Pulse 61 07/15/20 04:04 Respiratory Rate 20 07/15/20 04:04 Blood Pressure 175/100 H 07/15/20 04:04 Pulse Oximetry 98 07/15/20 04:04 Temperature 35.8 C L 07/15/20 04:04 Temperature Source Temporal Artery Scan 07/15/20 04:04 Pulse 61 07/15/20 04:04 Respiratory Rate 20 07/15/20 04:04 Blood Pressure 175/100 H 07/15/20 04:04 Blood Pressure Position Sitting 07/15/20 04:04 Pulse Oximetry 98 07/15/20 04:04 Oxygen Delivery Method Room Air 07/15/20 04:04 Oxygen Flow Rate 0 07/15/20 04:04 Pain Level 9 07/15/20 04:20 Lab/Test Results Lab/Test Results: Laboratory Tests Range/Units 07/15/20 04:00 WBC (4.4-10.8) 10^3/uL 8.02 RBC (4.36-5.78) 10^6/uL 4.66 Hgb (13.5-17.5) g/dL 14.3 Hct (40.0-50.0) % 43.9 MCV (80-95) fL 94.2 MCH (27.0-33.0) pg 30.7 MCHC (32.0-36.0) % 32.6 RDW (11.8-14.1) % 12.8 Plt Count (130-400) 10^3/uL 243 MPV (8.0-11.0) fL 10.1 Immature Gran % 0.2 Neutrophils % 71.3 Lymphocytes % 18.2 Monocytes % 8.5 Eosinophils % 1.4 Basophils % 0.4 Nucleated RBC % % 0 Absolute Neutrophils (1.2-6.7) 10^3/uL 5.72 Absolute Lymphocytes (1.2-3.4) 10^3/uL 1.46 Absolute Monocytes (0.1-0.8) 10^3/uL 0.68 Absolute Eosinophils (0.0-0.7) 10^3/uL 0.11 Absolute Basophils (0.0-0.2) 10^3/uL 0.03
[2020-07-15] MEDS: Normal Saline - Diluent 50 ML VIAL IV (04:43)
[2020-07-15] MEDS: Omnipaque 350 MG/ML 100 ML BTL IJ (04:43)
--- NOTE | 2020-07-15 04:55 | DI.VRAD_ITS ---
PROCEDURE INFORMATION: Exam: CT Abdomen And Pelvis With Contrast Exam date and time: 07/15/2020 3:58 AM Age: 44 years old Clinical indication: Localized; Right upper quadrant (ruq); Patient HX: Ruq abdominal pain, known gallstones; Additional info: Evaluate gb TECHNIQUE: Imaging protocol: Computed tomography of the abdomen and pelvis with intravenous contrast. COMPARISON: CT THORAX ABD/PEL CTA 05/21/2020 5:03 AM FINDINGS: Liver: Hepatomegaly and diffuse fatty infiltrationNo mass. Gallbladder and bile ducts: Mildly distended with vague noncalcified gallstones. Question minimal gallbladder wall thickening. No ductal dilation. Pancreas: Normal. No ductal dilation. Spleen: Normal. No splenomegaly. Adrenal glands: Normal. No mass. Kidneys and ureters: Normal. No hydronephrosis. Stomach and bowel: Unremarkable. No obstruction. No mucosal thickening. Appendix: No evidence of appendicitis. Intraperitoneal space: Unremarkable. No free air. No significant fluid collection. Vasculature: Unremarkable. No abdominal aortic aneurysm. Lymph nodes: Unremarkable. No enlarged lymph nodes. Urinary bladder: Unremarkable as visualized. Reproductive: Unremarkable as visualized. Bones/joints: Unremarkable. No acute fracture. Soft tissues: Unremarkable. IMPRESSION: Mildly distended gallbladder with vague noncalcified gallstones. Consider right upper quadrant ultrasound for further evaluation Mild fatty infiltration of the liver and hepatomegaly Dictated and Authenticated by: Aquiles Toth MD. Ordering:URIEL Fletcher MD
[2020-07-15 05:02] VITALS: BP 134/76; PULSE 58; RESP 18; O2SAT 95
[2020-07-15 05:17] LABS: ALT 35 U/L (16-63); AST 26 U/L (15-37); Albumin 3.2 g/dL (3.4-5.0); Alkaline Phosphatase 120 U/L (46-116); Anion Gap 5.7 mmol/L (3-11); BUN 20 mg/dL (7-18); Bilirubin, Direct 0.11 mg/dL (0.00-0.20); Bilirubin, Total 0.5 mg/dL (0.2-1.0); CO2 28.3 mmol/L (21.0-32.0); CREATININE 1.12 mg/dL (0.70-1.30); Calcium 8.2 mg/dL (8.5-10.1); Chloride 105 mmol/L (98-107); Glucose 124 mg/dL (74-106); Lipase 148 U/L (73-393); Potassium 4.1 mmol/L (3.5-5.1); Sodium 139 mmol/L (136-145)
[2020-07-15 05:18] LABS: Troponin I < 0.05 ng/mL (<0.06)
[2020-07-17 13:05] LABS: SARS-CoV-2 RNA Not Detected (NotDetected); SARS-CoV-2 RNA Source Nasal/Nares
== END 2020-07-15 06:10 | disposition home or self-care (01) ==
PROVIDERS: Emergency Provider Student in an Organized Health Care Education/Training Program; PCP Nurse Practitioner Family
DX: K80.70 Calculus of gallbladder and bile duct without cholecystitis without obstruction (principal); E66.01 Morbid (severe) obesity due to excess calories; Z68.41 Body mass index [BMI] 40.0-44.9, adult; Z03.818 Encounter for observation for suspected exposure to other biological agents ruled out
CPT/HCPCS: 36415; 80053; 83690; 93005; 96361; 96374; 96375; 99285; U0003; 74177; 81003; 82248; 84484; 85025; 93010; J1885; J3490

== ENCOUNTER 2020-07-19 08:56 | Outpatient (CLI) | payer MEDICAID, SELFPAY ==
[2020-07-21 10:21] LABS: SARS-CoV-2 RNA Not Detected (NotDetected); SARS-CoV-2 RNA Source Nasal/Nares
== END 2020-07-19 09:16 ==
PROVIDERS: PCP Nurse Practitioner Family; Visit Provider Surgery
DX: Z01.818 Encounter for other preprocedural examination (principal)
CPT/HCPCS: U0003

== ENCOUNTER 2020-07-23 06:14 | Day surgery (SDC) | payer MEDICAID, SELFPAY ==
[2020-07-23] VITALS (11 sets, daily range): BP systolic 102–140; BP diastolic 44–85; PULSE 55–67; RESP 12–18; TEMP 36–36.8; O2SAT 92–99
[2020-07-23] MEDS: Gabapentin 300 MG CAP PO (06:56)
[2020-07-23] MEDS: Acetaminophen 500 MG TAB 1000 MG PO (06:56)
[2020-07-23] MEDS: Lactated Ringers 1,000 ML 80 ML IV (07:10)
--- NOTE | 2020-07-23 07:14 | NUR.NOTE ---
0714: no urine HCG, pt is maleNursing Note:
[2020-07-23] MEDS: ceFAZolin 2 GM/50 ML BAG IVPB (07:54)
[2020-07-23] MEDS: Bupivacaine 0.25% Pres-Free 30 ML VIAL ×2 (08:54)
--- NOTE | 2020-07-23 09:30 | GB_PTH ---
PATIENT: Alix Petersen LOC: [facility] U#:[id number] AGE/SX: 44/M ROOM: RE07/23/[address]: Paula Hawkins : 1975 BED: DIS: 07/23/2020 SPEC #: [id number] RECD: 07/23/20 12:29 STATUS: JO ANN REQ #: [id number] MARCELINO: 07/23/20 09:[address]: Paula Hawkins DEPT: Surgical Specimen RECD BY: Chen Vang ENTERED: 07/23/20 12:29 SP TYPE: GB OTHR DR: Nasrin Royal Tissues: 1 - GALLBLADDER Procedures: GROSS AND MICRO LEVEL 3 Comments: [id number]
[2020-07-23] MEDS: Cellulose,Oxidized 4X8 1 PACKET MC (09:55)
--- NOTE | 2020-07-23 10:39 | ROE_ITS ---
Date of service: 07/23/20 Time of Service: 10:39 Operative Note Operative Note DATE OF PROCEDURE: 07/23/20 PRE-OP DIAGNOSIS: chronic amanda and gallstones POST-OP DIAGNOSIS: other PROCEDURE: lap amanda SURGEON: Warren Hampton SMOKING PIPES CLEANER: Holly Milton ANESTHESIA: PAULA ESTIMATED BLOOD LOSS: 50 PATHOLOGY: other COMPLICATIONS: None Patient was transported to: PACU Patient's condition: stable Procedure Description: COMPLICATIONS: The patient tolerated the procedure without complication. INDICATIONS: chronic cholecystitis, cholelithiasis and is here today for laparoscopic cholecystectomy. Informed consent was obtained, explaining risks and benefits of the procedure including but not limited to bleeding, infection, pneumonia, blood clots, possible damage to bowel, bladder, blood vessels, bile ducts, possible open procedure, complications of general anesthesia and other unforetold complications. PROCEDURE: The patient agrees and is brought to the operative room suite and placed in supine position. Anesthesia was administered per the Department of Anesthesia. The patient did receive IV antibiotics. NG tube and Hutton catheter are placed. The patient was prepped and draped in the usual sterile fashion using DuraPrep scrub solution. Pause for the cause was done. 30 mL of 1% buffered lidocaine was used for local anesthetization. Patient has had a previous umbilical / ventral hernia surgery with a [id number] mesh placed at the umbilicus. A stab incision was made 3 inches above and 2 inches to the right of the umbilicus and the Verres inserted. Drop test was positive and insufflation was begun. When 15 mm of pressure was noted on the monitor, the Veress was removed and #5 port inserted. We did have to use bariatric trochars. the camera was inserted through the port and shows no damage to underlying structures. A 10 mm port was then placed in the epigastric position under direct visualization following creation of local f ield blocks as well as two 5 mm ports in the right upper quadrant. A fourth 10 mm port is placed in the right extreme lateral position. We did have to place a fan to hold down the mesentery so we could visualize the bile duct structures. the gallbladder fundus was grasped and retracted towards the right shoulder. Infundibulum was grasped and retracted laterally. The hepat-duodenal ligament is entered-the structure is extremely fatty.. The cystic duct and artery are dissected out and the most inferior portion of the gallbladder plate is removed from the liver and the critical view of safety was obtained after clearing away all fatty material. Endo Clips were placed across the duct and artery and these structures are divided. The remainder of the gallbladder was excised from the liver bed. The gallbladder was placed in a bag and brought out. Examination of the gallbladder shows indeed the cystic duct and artery to have been divided. The remainder of the abdomen was copiously irrigated with a liter of saline. All saline is removed. Pieces Surgicel was placed in the hepatoduodenal ligament region. There is no bleeding or bile leakage from the liver bed or the clips sites. The Jose Francisco-Naik needle was used to close the 10 mm port site with an 0 Vicryl. All ports and instruments are removed. Pneumoperitoneum is evacuated and the port sites are monitored to make sure there is no bleeding at the time of desufflation. Port sites are irrigated and the skin is closed with 4-0 Monocryl in a running subcuticular fashion. Steri tapes and sterile dressings are applied. The patient tolerated the procedure well without complications, transferred to the recovery room in stable condition. WARREN HAMPTON DO
--- NOTE | 2020-07-23 10:48 | W.PM.DSUDISC ---
Discharge Plan Disposition Patient Disposition: HOME Condition: Good Discharge Details Reason For Visit: g Attending Provider: Paula Hawkins Primary Care Provider: Nasrin Royal Home Meds and New Rx's Prescriptions: New tramadol [Ultram] 50 mg tablet 50 mg PO Q6H PRNQty: 14 RF: 0 ibuprofen 600 mg tablet 600 mg PO Q6H PRNQty: 90 RF: 3 Continued sucralfate [Carafate] 1 gram tablet 1 g PO QACHS Qty: 60 RF: 12 multivitamin [Daily Multiple] 1 EACH tablet 1 ea PO DAILY RF: 0 omeprazole 40 mg PO DAILY RF: 0 acetaminophen 500 mg Tablet 500 mg PO Q6H PRNRF: 0 ibuprofen 600 MG tablet 600 mg PO Q6H PRN (Reason: Pain) Qty: 20 RF: 0 ranitidine HCl 150 mg Tablet 150 mg PO PRN PRN (Reason: Acid Reflux) RF: 0 Hold Instructions: Changed by Provider Discharge Instructions Additional Instructions: Care after Gallbladder Surgery -You should walk frequently, gradually, increasing the distance. You may climb stairs, just go slowly. -You can take Advil 600mg 4 times a day with food for the first week for pain; you may take your prescription medication as prescribed-in addition to the Advil. Discontinue Advil if it hurts your stomach. Do not take Advil if you are intolerant to aspirin products or have stomach problems. ? Use an ice bag for the first 72 hours. This helps to decrease swelling, which causes pain. It is normal to be more sore/painful and swollen towards the end of the day and first thing in the morning. ? Gallbladder surgery can make you very nauseated; use Zofran for nausea, for the first 24 hours. The nausea generally stops after 24 hours. ? Use milk of magnesia or prune juice to prevent constipation (this is a particular side effect of pain medication). Do not allow yourself to become constipated. ? Avoid fatty or greasy foods; introduce these slowly, with care, after about 1 month. Follow the low-fat diet sheet that will be given to you at the office or hospital. ? Start out eating very small, bland amounts of food. Do not take pain pills on an empty stomach. - You can remove the Band-Aids and take a shower 24 hours after surgery. There will be some narrow white strips of tape across your incisions (under the Band-Aids). DO NOT REMOVE THESE. It is all right if they get wet. They will be removed in the doctor?s office. ? Do not go swimming or sit in a hot tube for two weeks. ? There are no stitches to remove. ? Do not drive your car x72hrs and then only if you have no pain and can move freely. Do not drive if you are taking pain narcotic pain medications. ? You may resume sexual activity whenever pain and soreness subside, usually in 2 weeks. ? Do no lift anything over 5 lbs. for the first 10 days. Minimize strenuous activity for the next two weeks. ? You may return to work in one week, or when you feel able, provided you do not have to do any heavy lifting or prolonged standing. ? You should return to Dr. Hawkins?s office for a post-op appointment about one week after surgery. Please call the Surgical Clinic at: [phone] to schedule an appointment. My Medications for pain and nausea are: ibuprofen and ultram and zofran When to Call the Office: ? If the incision becomes red or swollen, or there is more than a little drainage from it. ? If you develop a temperature higher than 100.5 F. ? If your eyes turn yellow ? Vomiting and can?t keep fluids down Activity:: no lifting over 5#'s x2 wks Remove Dressings/Wound Care:: 24 hours Shower/Bathe:: 24 hours Diet:: no diary/pork/fried foods for 2 wks DS: Diagnosis Discharge Diagnosis (1) Biliary colic: Status: Acute (2) Irritable bowel syndrome with diarrhea: Status: Acute (3) Hiatal hernia with GERD: Status: Acute (4) Morbidly obese: Status: Acute
[2020-07-23] MEDS: HYDROmorphone 2 MG/ML VIAL IVP ×3 (11:14→11:37)
[2020-07-23] MEDS: Ketorolac 15 MG/ML VIAL IVP (11:22)
== END 2020-07-23 13:37 | disposition home or self-care (01) ==
PROVIDERS: PCP Nurse Practitioner Family; Visit Provider Surgery
PROC: 0FT44ZZ Resection of Gallbladder, Percutaneous Endoscopic Approach (ICD-10-PCS; CPT 47562; principal; 2020-07-23 07:30)
DX: K80.10 Calculus of gallbladder with chronic cholecystitis without obstruction (principal); E66.01 Morbid (severe) obesity due to excess calories; Z68.42 Body mass index [BMI] 45.0-49.9, adult; K21.9 Gastro-esophageal reflux disease without esophagitis; K44.9 Diaphragmatic hernia without obstruction or gangrene
CPT/HCPCS: 47562; 88304; J0690; J1100; J1885; J2001; J2405; J2704; J3475

== ENCOUNTER 2020-07-27 12:12 | Outpatient (REF) | payer MEDICAID, SELFPAY ==
[2020-07-27 14:42] LABS: Abs Immature Grans 0.03 10^3/uL (0.0-0.06); Absolute Basophil Count 0.03 10^3/uL (0.0-0.2); Absolute Eosinophil Count 0.08 10^3/uL (0.0-0.7); Absolute Monocyte Count 0.84 10^3/uL (0.1-0.8); Absolute Neutrophil Count 6.79 10^3/uL (1.2-6.7); Basophils % 0.3; Eosinophils % 0.9; HCT 38.6 % (40.0-50.0); HGB 12.9 g/dL (13.5-17.5); Immature Grans % 0.3; Lymphocytes % 17.1; MCH 30.8 pg (27.0-33.0); MCHC 33.4 % (32.0-36.0); MCV 92.1 fL (80-95); MPV 10.5 fL (8.0-11.0); Neutrophils % 72.4; Nucleated RBC 0 %; Platelet Count 264 10^3/uL (130-400); RBC 4.19 10^6/uL (4.36-5.78); RDW 12.3 % (11.8-14.1); WBC 9.37 10^3/uL (4.4-10.8)
[2020-07-27 14:44] LABS: ALT 120 U/L (16-63); AST 29 U/L (15-37); Albumin 3.4 g/dL (3.4-5.0); Alkaline Phosphatase 134 U/L (46-116); Anion Gap 12.6 mmol/L (3-11); BUN 20 mg/dL (7-18); Bilirubin, Total 0.6 mg/dL (0.2-1.0); CO2 24.4 mmol/L (21.0-32.0); Calcium 8.5 mg/dL (8.5-10.1); Chloride 104 mmol/L (98-107); Glucose 85 mg/dL (74-106); Potassium 4.1 mmol/L (3.5-5.1); Sodium 141 mmol/L (136-145); Total Protein 7.3 g/dL (6.4-8.2)
== END 2020-07-27 12:32 ==
LOC: LBN 12:12
PROVIDERS: PCP Nurse Practitioner Family; Visit Provider Surgery
DX: Z90.49 Acquired absence of other specified parts of digestive tract (principal)
CPT/HCPCS: 80053; 85025

== ENCOUNTER 2021-07-10 09:28 | Outpatient (REF) | payer MEDICAID, SELFPAY ==
[2021-07-10 13:01] LABS: Calculated LDL 83 mg/dL (<100); Cholesterol 143 mg/dL (<200); HDL Cholesterol 29 mg/dL (40-60); TSH 2.29 uIU/mL (0.36-3.74); Triglyceride 159 mg/dL (<150)
[2021-07-10 13:24] LABS: Hemoglobin A1C 5.3 % (<5.7)
== END 2021-07-10 09:29 | disposition home or self-care (01) ==
LOC: NCHCN 09:28
PROVIDERS: PCP Nurse Practitioner Family; Visit Provider Nurse Practitioner Family
DX: E66.01 Morbid (severe) obesity due to excess calories (principal)
CPT/HCPCS: 80061; 84402; 84403; 83036; 84443

== ENCOUNTER 2022-08-20 12:05 | Outpatient (REF) | payer MEDICAID, SELFPAY ==
[2022-08-20 15:05] LABS: Anion Gap 8.8 mmol/L (3-11); BUN 16 mg/dL (7-18); CO2 27.2 mmol/L (21.0-32.0); Calcium 8.5 mg/dL (8.5-10.1); Chloride 101 mmol/L (98-107); Estimated GFR 94.59 (mL/min/1.73m2); Glucose 101 mg/dL (74-106); Potassium 3.9 mmol/L (3.5-5.1); Sodium 137 mmol/L (136-145)
== END 2022-08-20 12:06 | disposition home or self-care (01) ==
LOC: NCHCN 12:05
PROVIDERS: PCP Nurse Practitioner Family; Visit Provider Nurse Practitioner Family
DX: U07.1 COVID-19 (principal)
CPT/HCPCS: 80048

== ENCOUNTER 2023-03-05 03:14 | Outpatient (CLI) | payer MEDICAID, SELFPAY ==
--- NOTE | 2023-03-05 08:00 | DI.US_ITS ---
Exam(s) US HERNIA EXAM: US HERNIA CLINICAL HISTORY: RLQ AND RUQ ABD PAIN, R10.11, R10.31, SHARP STABBING PAIN ALONG INCISION. TECHNIQUE: Ultrasound was performed using standard protocol. COMPARISON: No exams were available for comparison FINDINGS: Sonographic assessment utilizing grayscale and color Doppler imaging was performed and targeted to th e area of clinical concern. No mass, cyst or fluid collection is seen. There is no visible edema in the subcutaneous tissues. N o hernia is identified. IMPRESSION: No abnormality is visible. DATA REPOSITORY:
== END 2023-03-05 03:34 ==
LOC: DI 03:14
PROVIDERS: PCP Nurse Practitioner Family; Visit Provider Nurse Practitioner Family
DX: R10.11 Right upper quadrant pain (principal); R10.31 Right lower quadrant pain; Z98.890 Other specified postprocedural states
CPT/HCPCS: 76857

== ENCOUNTER 2024-11-10 21:27 | Outpatient (REF) | payer MEDICAID, SELFPAY ==
[2024-11-10 19:35] LABS: Hemoglobin A1C 5.9 % (<5.7)
[2024-11-10 20:34] LABS: ALT 44 U/L (16-63); AST 27 U/L (15-37); Albumin 3.4 g/dL (3.4-5.0); Alkaline Phosphatase 176 U/L (46-116); Anion Gap 6.5 mmol/L (3-11); BUN 20 mg/dL (7-18); Bilirubin, Total 0.2 mg/dL (0.2-1.0); CO2 29.5 mmol/L (21.0-32.0); CREATININE 1.2 mg/dL (0.70-1.30); Calcium 8.9 mg/dL (8.5-10.1); Calculated LDL 79 mg/dL (<100); Chloride 108 mmol/L (98-107); Cholesterol 140 mg/dL (<200); Glucose 94 mg/dL (74-106); HDL Cholesterol 36 mg/dL (>or=40); Magnesium 2.1 mg/dL; Potassium 3.9 mmol/L (3.5-5.1); Sodium 144 mmol/L (136-145); TSH (W/Ref FT4) 5.31 uIU/mL (0.36-3.74); Total Protein 7.5 g/dL (6.4-8.2); Triglyceride 128 mg/dL (<150); Vitamin B12 609 pg/mL (193-986)
[2024-11-10 20:44] LABS: Uric Acid 7.2 mg/dL (3.5-7.2)
== END 2024-11-10 21:28 | disposition home or self-care (01) ==
LOC: NCHCN 21:27
PROVIDERS: Visit Provider Nurse Practitioner Family
DX: Z68.43 Body mass index [BMI] 50.0-59.9, adult (principal); M79.672 Pain in left foot; Z00.00 Encounter for general adult medical examination without abnormal findings; K21.9 Gastro-esophageal reflux disease without esophagitis
CPT/HCPCS: 80053; 80061; 82607; 83036; 83735; 84439; 84443; 84550

== ENCOUNTER 2024-11-25 00:13 | Outpatient (CLI) | payer MEDICAID, SELFPAY ==
--- NOTE | 2024-11-25 | DI.US_ITS ---
Exam(s) US ABDOMEN LIMITED EXAM: US ABDOMEN LIMITED CLINICAL HISTORY: Alkaline phosphatase above reference range, R74.8 TECHNIQUE: Ultrasound abdomen performed using standard protocol. COMPARISON: CT CT ABDOMEN PELVIS W from 07/15/2020 FINDINGS: LIVER: Enlarged at 23.3 cm in length. Extreme increased echogenicity and decreased through transmiss ion consistent with severe hepatic steatosis. Some portions of the liver cannot be visualized. No f ocal liver lesions are visible. GALLBLADDER: Cholecystectomy. BILIARY SYSTEM: No intrahepatic or extrahepatic biliary ductal dilation. KIDNEYS: Kidneys are symmetric in size. No evidence of renal calculi. No evidence of hydronephrosis. No renal mass or cyst identified. PANCREAS: Normal where visualized. SPLEEN: Not enlarged. ABDOMINAL AORTA AND IVC: Visualized portions normal caliber. ASCITES: None seen. IMPRESSION: Enlarged liver with marked hepatic steatosis. Cholecystectomy. DATA REPOSITORY:
== END 2024-11-25 00:33 ==
PROVIDERS: PCP Nurse Practitioner Family; Visit Provider Nurse Practitioner Family
DX: K76.0 Fatty (change of) liver, not elsewhere classified (principal)
CPT/HCPCS: 76705

== ENCOUNTER 2024-12-15 18:20 | Outpatient (REF) | payer MEDICAID, SELFPAY ==
[2024-12-15 19:30] LABS: HCT 44.5 % (40.0-50.0); HGB 14.5 g/dL (13.5-17.5); MCH 30.9 pg (27.0-33.0); MCHC 32.6 % (32.0-36.0); MCV 95 fL (80-95); MPV 9.8 fL (8.0-11.0); Platelet Count 241 10^3/uL (130-400); RBC 4.69 10^6/uL (4.36-5.78); RDW 12.7 % (11.8-14.1); RDW-SD 43.8 fL; WBC 10.23 10^3/uL (4.4-10.8)
[2024-12-15 19:37] LABS: Iron 73 ug/dL (65-175); Prothrombin Time 9.6 sec (9.1-11.1); Total Iron Binding Capacity 254 ug/dL (250-450)
[2024-12-15 19:57] LABS: Ferritin 447 ng/mL (26-388); TSH 3.65 uIU/mL (0.36-3.74)
[2024-12-15 20:41] LABS: FREE T4 0.96 ng/dL (0.76-1.46)
[2024-12-15 22:30] LABS: Uric Acid 7.9 mg/dL (3.5-7.2)
[2024-12-19 09:39] LABS: Hepatitis C Ab w Rflx HCV PCR Negative (Negative)
[2024-12-19 11:16] LABS: Hepatitis B Surface Ag Negative (Negative)
[2024-12-19 11:23] LABS: HBs Antibody, Quant <3.1 mIU/mL (See Note); Hepatitis B Surface Ab Negative (See Note)
[2024-12-19 12:04] LABS: Hep B Core Antibody Negative (Negative)
== END 2024-12-15 18:21 | disposition home or self-care (01) ==
LOC: NCHCN 18:20
PROVIDERS: PCP Nurse Practitioner Family; Visit Provider Nurse Practitioner Family
DX: E02 Subclinical iodine-deficiency hypothyroidism (principal); E79.0 Hyperuricemia without signs of inflammatory arthritis and tophaceous disease; K76.0 Fatty (change of) liver, not elsewhere classified
CPT/HCPCS: 85027; 86704; 86706; 86803; 87340; 82728; 83540; 83550; 84439; 84443; 84550; 85610

== ENCOUNTER 2025-02-24 14:58 | Outpatient (REF) | payer MEDICAID, SELFPAY ==
[2025-03-08 11:30] LABS: Testosterone, Free 7.54 ng/dL (4.26-16.4); Testosterone, Total 306 ng/dL (240-950)
== END 2025-02-24 14:59 | disposition home or self-care (01) ==
LOC: NCHCN 14:58
PROVIDERS: PCP Nurse Practitioner Family; Visit Provider Nurse Practitioner Family
DX: Z68.43 Body mass index [BMI] 50.0-59.9, adult (principal)
CPT/HCPCS: 84402; 84403